=== PATIENT | female | born 1995 | race Caucasian/White ===

== ENCOUNTER 2019-10-03 17:58 | Emergency (ER) | payer BC, MEDICAID, SELFPAY ==
[2019-10-03 18:10] VITALS: BP 133/70; PULSE 97; RESP 16; TEMP 36.9; O2SAT 100
--- NOTE | 2019-10-03 18:10 | ED.SKABFB ---
HPI - Skin/Abscess/Foreign Bdy General Chief complaint: Skin/Abscess/Foreign Body Stated complaint: sore on backside Time Seen by Provider: 10/03/19 18:11 Source: patient Mode of arrival: ambulatory Limitations: no limitations History of Present Illness HPI narrative: Sofia Kumari is a 24 yo female with a PMH of PTSD, anxiety, depression, who comes to express care with abscess on lower right buttock cheek has already been opened at home. Patient has multiple old healing scars from where she has had smaller abscesses before that she is open. She uses a nondisposable razor to shave up into her buttock along with her legs and states that although she flips through a razor up to dry, has had ongoing problems with this on her upper legs Related Data Allergies Allergy/AdvReac Type Severity Reaction Status Date / Time No Known Allergies Allergy Uncoded 01/01/19 19:16 Review of Systems Review of Systems: Narrative: CONSTITUTIONAL: Denies fever, chills, sweats. EYES: Denies visual changes, redness, discharge. ENT: Denies rhinorrhea, congestion, sore throat, otalgia. CARDIOVASCULAR: Denies chest pain, palpitations, edema. RESPIRATORY: Denies dyspnea, wheezing, cough GASTROINTESTINAL: Denies abdominal pain, nausea, vomiting, diarrhea. GENITOURINARY: Denies dysuria, hematuria, abnormal discharge SKIN: Denies rash or itching. 3 x 3 indurated tender area, right buttock NEUROLOGIC: Denies numbness, or focal weakness. PSYCHIATRIC: Denies anxiety or depression. [facility] Family History Family History Other Depression Social History Social History Smoking status: Never smoker Alcohol intake: never Comments At time of signature, I agree with nursing past medical, surgical, social and family history. There is no relevant family history pertinent to the presenting complaint. Exam Narrative: Exam Narrative: GENERAL: This is a well-nourished, well-developed patient, in moderate distress. HEAD: normocephalic, atraumatic. EYES: Sclera clear/white. Vision is grossly intact. EARS: External ears normal. Hearing grossly intact. NOSE: External nose normal without nasal discharge, nares without redness, no rhinorrhea. THROAT: Mucous membranes moist, NECK: Neck supple, CARDIOVASCULAR: Regular rate and rhythm without murmurs, gallops, or rubs. RESPIRATORY: Clear to auscultation. Breath sounds equal bilaterally. No wheezes, rales, or rhonchi. GASTROINTESTINAL: Abdomen soft,, SKIN: warm, intact with. By 3 discolored indurated but nonfluctuant lesion on right lower buttock, has been opened and drained today, multiple other small scars and brown areas from prior smaller abscesses/cellulitis NEURO: awake, alert, and oriented to person, place and time. There were no obvious focal neurologic abnormalities. Steady gait EXTREMITIES: Normal range of motion. BACK: Nontender without deformity Course Course Emergency Course: 18-gauge needle inserted with no pus return Started patient on Bactrim and Keflex Discussed prevention of abscesses and cellulitis in the genital area Vital Signs Vital signs: Vital Signs Temperature 98.4 F 10/03/19 18:10 Pulse Rate 97 10/03/19 18:10 Respiratory Rate 16 10/03/19 18:10 Blood Pressure 133/70 10/03/19 18:10 Pulse Oximetry 100 10/03/19 18:10 Temperature 98.4 F 10/03/19 18:10 Pulse Rate 97 10/03/19 18:10 Respiratory Rate 16 10/03/19 18:10 Blood Pressure 133/70 10/03/19 18:10 Pulse Oximetry 100 10/03/19 18:10 Procedures Abscess I/D lower extremity: Date of Incision: 10/03/19 Time of Incision: 18:30 Side (if applicable): left Technique: needle aspiration Amount of fluid expressed (mL): 5 Irrigation: No I&D Results: Blood Abcess I&D Additional Comments: Dressing applied-lower right buttock MDM - Skin/Abscess/Foreign Bdy Differential Diagnosis Differential
== END 2019-10-03 18:52 | disposition home or self-care (01) ==
PROVIDERS: Emergency Provider Nurse Practitioner; PCP Physician Assistant
DX: L02.31 Cutaneous abscess of buttock (principal)
CPT/HCPCS: 10160; 99213; G0463

== ENCOUNTER 2020-09-22 15:30 | Emergency (ER) | payer MEDICAID, SELFPAY ==
[2020-09-22 15:39] VITALS: BP 119/71; PULSE 87; RESP 18; TEMP 37.1; O2SAT 98
== END 2020-09-22 15:44 | disposition left against medical advice (07) ==
LOC: ANHED 15:52
DX: J45.901 Unspecified asthma with (acute) exacerbation (principal)
CPT/HCPCS: 99199

== ENCOUNTER 2020-09-29 16:24 | Emergency (ER) | payer BC, MEDICAID, SELFPAY ==
--- NOTE | 2020-09-29 16:28 | ED.URI ---
HPI - URI/Sore Throat General Chief Complaint: Upper Respiratory Infection Stated Complaint: sob Time Seen by Provider: 09/29/20 16:28 Source: patient and RN notes reviewed History of Present Illness HPI Narrative: Patient is a 25-year-old female who presents the urgent care with complaints of severe shortness of breath with a history of asthma. Patient states that she has had the shortness of breath, wheezing and cough for approximately 1 week without fever, nausea, vomiting, chest pain. Patient states she attempted to go to the ER last week which was a 4-hour wait and signed out AMA. Patient does not have a nebulizer at home but has been using her inhaler. Obvious difficulty breathing. No acute distress noted. Patient aware of the plan of care. Some parts of this dictation were generated by voice recognition software and may contain typographical and/or grammatical inaccuracies. Related Data Home Medications Medication Instructions Recorded Confirmed albuterol sulfate 2 puff INHALATION Q4-6H PRN 09/29/20 09/29/20 levonorgestrel [Mirena] 1 insert INTRAUTERINE ONCE 09/29/20 09/29/20 trazodone 150 mg PO HS 09/29/20 09/29/20 Allergies Allergy/AdvReac Type Severity Reaction Status Date / Time No Known Allergies Allergy Unknown Unknown Uncoded 09/29/20 16:45 Review of Systems Review of Systems: Narrative: CONSTITUTIONAL: Denies fever, chills, or sweats. EYES: Denies visual changes, redness, or discharge. ENT: Denies rhinorrhea, congestion, sore throat, or otalgia. CARDIOVASCULAR: Denies chest pain, palpitations, or edema. RESPIRATORY: Reports of cough, wheezing and dyspnea GASTROINTESTINAL: Denies abdominal pain, nausea, vomiting, or diarrhea. GENITOURINARY: Denies dysuria or hematuria. SKIN: Denies rash or itching. MUSCULOSKELETAL: Denies back pain, joint pain, or myalgia. NEUROLOGIC: Denies headache, numbness, or weakness. All other systems reviewed are negative, except as documented in HPI. [facility] Family History Family History Other Depression Social History Social History Smoking status: Never smoker Alcohol intake: never Gender identity (if verbalized by the patient): Female Comments At the time of my signature, I reviewed and agree with the nursing past medical, surgical, social, and family history. There is no relevant family history pertinent to the patient complaint. Exam Narrative: Exam Narrative: GENERAL: This is a well-nourished, well-developed patient, in no apparent distress. HEAD: normocephalic, atraumatic. EYES: PERRL. Sclera clear/white. Vision is grossly intact. EARS: External ears normal NOSE: External nose normal with no obvious nasal discharge, nares without redness, no rhinorrhea. THROAT: Mucous membranes moist, posterior pharynx clear. Moderate postnasal drainage NECK: Neck supple CARDIOVASCULAR: Regular rate and rhythm without murmurs, gallops, or rubs. RESPIRATORY: Tight inspiratory and expiratory wheezes throughout SKIN: warm, intact with no suspicious lesions or rash, good texture and turgor. NEURO: awake, alert, and oriented to person, place and time. There were no obvious focal neurologic abnormalities. EXTREMITIES: No clubbing, cyanosis, or edema. Course Vital Signs Vital signs: Vital Signs Temperature 98.4 F 09/29/20 16:32 Pulse Rate 104 H 09/29/20 16:32 Respiratory Rate 16 09/29/20 16:32 Blood Pressure 130/65 09/29/20 16:32 Pulse Oximetry 97 09/29/20 16:32 Temperature 98.4 F 09/29/20 16:32 Pulse Rate 104 H 09/29/20 16:32 Respiratory Rate 16 09/29/20 16:32 Blood Pressure 130/65 09/29/20 16:32 Pulse Oximetry 97 09/29/20 16:32 Reviewed MDM - URI/Sore Throat MDM Narrative Medical decision making narrative: Advised the patient to complete steroid regimen as prescribed. Use the inhaler as needed for shortness of breath. Use nebulizer as needed for shortness of breath or wheezi
[2020-09-29] MEDS: ALBUTEROL SULFATE NEB 2.5 MG/3 ML INH INHALATION (16:31)
[2020-09-29 16:32] VITALS: BP 130/65; PULSE 104; RESP 16; TEMP 36.9; O2SAT 97
== END 2020-09-29 17:00 | disposition home or self-care (01) ==
PROVIDERS: Emergency Provider Nurse Practitioner Family
DX: J45.909 Unspecified asthma, uncomplicated (principal); F32.9 Major depressive disorder, single episode, unspecified
CPT/HCPCS: 94640; 99213; G0463

== ENCOUNTER 2022-03-20 10:02 | Emergency (ER) | payer OTHER, SELFPAY ==
[2022-03-20 10:08] VITALS: BP 107/53; PULSE 84; RESP 14; TEMP 37.6; O2SAT 98
--- NOTE | 2022-03-20 10:50 | ED.GENADULT ---
HPI - General Adult General Chief complaint: Ear Stated complaint: ear/jaw pain Source: patient Mode of arrival: ambulatory Limitations: no limitations History of Present Illness HPI narrative: Patient presents for evaluation of right-sided ear pain. Symptom onset this morning. She has some pain beneath right side of her jaw and underneath right ear. No hearing loss, tinnitus, drainage from that ear. Approximately 4 days ago she noted some muffled hearing on the left, which has since resolved. She has a chronic cough which she attributes to smoking marijuana. Cough is not worse than baseline. No shortness of breath. No fever, chills, nausea, vomiting. No recent sick contacts to her knowledge. She took some naproxen around 4:00 a.m. this morning without considerable improvement in her symptoms are after. Related Data Home Medications Medication Instructions Recorded Confirmed albuterol sulfate 90 mcg/actuation 2 puff inhalation Q4-6H PRN 09/29/20 09/29/20 aerosol inhaler Shortness Of Breath Or Wheezing levonorgestrel 20 mcg/24 hours (8 1 insert intrauterine ONCE 09/29/20 09/29/20 yrs) 52 mg intrauterine device (Mirena) trazodone 150 mg tablet 150 mg PO HS 09/29/20 09/29/20 Allergies Allergy/AdvReac Type Severity Reaction Status Date / Time No Known Allergies Allergy Unknown Unknown Uncoded 09/29/20 16:45 Review of Systems Review of Systems: CONSTITUTIONAL: Denies fever, chills, or sweats. EYES: Denies visual changes, redness, or discharge. ENT: Reports right-sided ear pain. Reports recent muffled hearing in the left ear, now resolved. Denies rhinorrhea, congestion, sore throat CARDIOVASCULAR: Denies chest pain, palpitations, or edema. RESPIRATORY: Reports chronic cough, not worse from baseline. Denies shortness of breath GASTROINTESTINAL: Denies abdominal pain, nausea, vomiting, or diarrhea. GENITOURINARY: Denies dysuria or hematuria. SKIN: Denies rash or itching. MUSCULOSKELETAL: Denies back pain, joint pain, or myalgia. NEUROLOGIC: Denies headache, numbness, dizziness, or weakness. PSYCHIATRIC: Denies anxiety or depression. [facility] Past Medical History Medical History (Updated 03/20/22 @ 10:53 by Roger Solorzano, [facility], ) No pertinent past medical history Surgical History Surgical History No pertinent past surgical history Family History Family History Other Depression Social History Social History Smoking status: Never smoker Alcohol intake: never Substance use: current Substance use type: marijuana Gender identity (if verbalized by the patient): Female Spiritual care concerns: No Exam Narrative: GENERAL: Well-appearing, well-nourished, and in no acute distress. HEAD: Normocephalic, atraumatic. EYES: PERRLA and EOMI. ENT: Nares clear, no rhinorrhea or epistaxis. Mucous membranes moist. Oropharynx without tonsillar hypertrophy exudate or other lesions. Right tympanic membrane erythema with thick yellow exudate behind the right TM. NECK: Supple. No adenopathy or masses. No carotid bruits or JVD CHEST: Clear to auscultation. No respiratory distress. No wheezes rales or rhonchi HEART: Regular rate and rhythm. No murmur heard. Normal peripheral pulses. ABDOMEN: Soft, nontender, nondistended, normal active bowel sounds. EXTREMITIES: Normal range of motion. No edema. SKIN: Warm, dry, no rash. NEURO: No focal deficits. Alert and oriented x3. PSYCH: Normal mood and affect. Course Course Emergency Course: This is a 26-year-old female who presented for evaluation of right-sided ear pain. On exam she has evidence of otitis media. Will treat with Augmentin. Ibuprofen for pain. Follow-up outpatient for further evaluation treatment go to the ER for worsening symptoms. Patient in agreement wit
== END 2022-03-20 10:50 | disposition home or self-care (01) ==
PROVIDERS: Emergency Provider Nurse Practitioner; PCP Family Medicine
DX: H66.91 Otitis media, unspecified, right ear (principal)
CPT/HCPCS: 99213; G0463

== ENCOUNTER 2022-11-21 17:05 | Emergency (ER) | payer OTHER, SELFPAY ==
[2022-11-21 17:14] VITALS: BP 110/54; PULSE 78; RESP 20; TEMP 36.9; O2SAT 100
--- NOTE | 2022-11-21 18:07 | ED.EXTPRO ---
HPI - Extremity Problem General Chief complaint: Extremity Problem,Nontraumatic Stated complaint: arthritis flare right ankle Time Seen by Provider: 11/21/22 18:07 Source: patient, RN notes reviewed and old records reviewed Mode of arrival: ambulatory Limitations: no limitations History of Present Illness HPI Narrative: 27 year old female accompanied by significant other presents to express care with complaints of arthritis flare to her right ankle Patient reports that she has Rheumatoid arthritis and her right ankle has been bothering her for the past 2 weeks and today has been worse for the past 6 hours. Patient reports that she has taken naproxen with out relief. Patient reports that she has been noting some spasms to her right foot, reports no injury to her foot or ankle. MD Complaint: extremity pain, joint swelling and joint paint Onset (ago): week(s) (2) Location: right and lower extremity (ankle) Severity scale (1-10): 7 Quality: aching and constant Radiation: distal (foot) Exacerbating factors: range of motion and weight bearing Related Data Home Medications Medication Instructions Recorded Confirmed levonorgestrel 21 mcg/24 hours (8 1 insert intrauterine ONCE 09/29/20 11/21/22 yrs) 52 mg intrauterine device (Mirena) naproxen 500 mg tablet 500 mg PO DIRECTED 11/21/22 11/21/22 Allergies Allergy/AdvReac Type Severity Reaction Status Date / Time No Known Allergies Allergy Verified 11/21/22 17:35 Review of Systems Review of Systems: CONSTITUTIONAL: Denies fever, chills, or sweats. EYES: Denies visual changes, redness, or discharge. ENT: Denies rhinorrhea, congestion, sore throat, or otalgia. CARDIOVASCULAR: Denies chest pain, palpitations, or edema. RESPIRATORY: Denies cough or dyspnea. GASTROINTESTINAL: Denies abdominal pain, nausea, vomiting, or diarrhea. GENITOURINARY: Denies dysuria or hematuria. SKIN: Denies rash or itching. MUSCULOSKELETAL: Denies back pain, positive pain to right ankle with some lateral ankle swelling some spasms and discomfort to right foot no injury., or myalgia. NEUROLOGIC: Denies headache, numbness, or weakness. PSYCHIATRIC: Denies anxiety or depression. All systems reviewed & are unremarkable except as noted in HPI and below PMFSH Past Medical History Medical History (Updated 11/23/22 @ 10:31 by Monie Leblanc NP) FHx: bilateral hip replacements Rheumatoid arthritis Family History Family History Other Depression Social History Social History Smoking status: Never smoker Alcohol intake: never Substance use: current Substance use type: marijuana Living arrangements: alone Gender identity (if verbalized by the patient): Female Spiritual care concerns: No Comments At time of signature, agree with nursing past medical, surgical, social and family history. There is no relevant family history pertinent to the presenting complaint Exam Narrative: GENERAL: Well-appearing, well-nourished, and in no acute distress. HEAD: Normocephalic, atraumatic. EYES: PERRLA and EOMI. ENT: Nares clear, no rhinorrhea or epistaxis. Mucous membranes moist. NECK: Supple.no lymphadenopathy CHEST: Clear to auscultation. No respiratory distress.SAO2 100% on room air HEART: Regular rate and rhythm. No murmur heard. Normal peripheral pulses. ABDOMEN: Soft, nontender, nondistended, normal active bowel sounds. EXTREMITIES:Painful ROM to right ankle with some lateral ankle swelling states some spasm like discomfort to foot, denies any injury, history of rheumatoid arthritis, pulses strong right foot, mobility intact, sensation intact. SKIN: Warm, dry, no rash. NEURO: No focal deficits. Alert and oriented x3. Course Course Emergency Course: Patient is aware of diagnosis, understands and agrees to treatment plan.? Anticipatory guidance given.? Patient
== END 2022-11-21 18:43 | disposition home or self-care (01) ==
PROVIDERS: Emergency Provider Registered Nurse; PCP Family Medicine
DX: M06.9 Rheumatoid arthritis, unspecified (principal); F12.90 Cannabis use, unspecified, uncomplicated
CPT/HCPCS: 99213; G0463